=== PATIENT | male | born 1930 | race African-American/Black ===

== ENCOUNTER 2016-06-04 09:17 | Emergency (ER) | payer MEDICARE, OTHER ==
[2016-06-04 09:12] LABS: BASOPHIL# 0.1 X10e3 (0-0.3); BASOPHIL% 0.8 % (0-2.5); EOSINOPHIL# 0.1 X10e3 (0-0.7); EOSINOPHIL% 1.4 % (0.0-7.0); HEMATOCRIT 40.7 % (38.0-50.0); HEMOGLOBIN 13.3 gm/dL (13.0-16.0); LYMPHOCYTE# 1.8 X10e3 (1.0-3.5); LYMPHOCYTE% 25.8 % (17.0-45.0); MEAN CELL VOLUME 89.7 FL (83-96); MEAN CORPUSCULAR HEMOGLOBIN 29.2 PG (28-34); MEAN CORPUSCULAR HGB CONC 32.6 g/dL (30-36); MEAN PLATELET VOLUME 6.9 FL (6.5-11.5); MONOCYTE# 0.4 X10e3 (0-1.0); NEUTROPHIL# 4.5 X10e3 (1.5-7.1); PLATELET COUNT 260 X10e3 (140-420); RED BLOOD COUNT 4.54 X10e (3.90-5.60); RED CELL DISTRIBUTION WIDTH 12.2 % (11.0-15.5); WHITE BLOOD COUNT 6.8 X10e3 (4.0-10.5)
[2016-06-04 09:15] LABS: DIFF IND NO
[~2016-06-04 09:17] MED LIST: AMPICILLIN PO; ASPIRIN81 MG PO; B-12500 MCG PO; B12; BACTRIM DS TABL1 TAB PO; BAYER ASPIRIN325 M1 PO; DOC-Q-LACE100 MG PO; FINASTERIDE5 MG PO; FLOMAX0.4 M1 PO; HCTZ PO; HYDROCHLOROTHIA25 MG PO; INDERAL LA PO; INDERAL20 MG PO; LOVASTATIN20 M1 PO; LOVASTATIN20 M2 PO; LOVASTATIN20 MG PO; MACROBID 100 M100 MG PO; MAG-OX 400400 MG PO; PROPRANOLOL HCL20 MG PO; PROPRANOLOL PO; PROSCAR5 MG PO; RANITIDINE HCL150 M1 PO; TAPAZOLE10 MG PO; TYLENOL325 M1 PO; VASOTEC PO; VITAMIN B-12500 MCG PO; VITAMIN D5000 UNIT PO; VITAMIN D50000 UNIT PO; ZANTAC PO
[2016-06-04 09:34] LABS: BUN/CREATININE RATIO 13.12; CALCIUM SERUM 9.2 mg/dL (8.4-10.2); CREATININE SERUM 1.6 mg/dL (0.6-1.4); GLOM FILT RATE Estimated 44.6 mL/min (>60); POTASSIUM 3.1 mmol/L (3.5-5.1)
[2016-06-04 10:00] LABS: URINE SOURCE CLEAN CATCH
[2016-06-04 10:13] LABS: URINE APPEARANCE CLEAR; URINE BILIRUBIN NEG (NEG); URINE BLOOD NEG (NEG); URINE COLOR YELLOW; URINE GLUCOSE NEG (NEG); URINE KETONE NEG (NEG); URINE LEUKOCYTE ESTERASE TRACE (NEG); URINE NITRATE NEG (NEG); URINE PROTEIN 1+ (NEG); URINE SPECIFIC GRAVITY 1.023 (1.003-1.035); URINE UROBILINOGEN 0.2 MG/DL (NEG)
[2016-06-04 10:15] LABS: CULTURE INDICATED? YES; URBCS1 AUWI 0-2 /[HPF] (0-2); URINE BACTERIA AUWI NEG (NEGATIVE); URINE SQUAMOUS EPITHELIAL CELL NONE SEEN /[HPF]
== END 2016-06-04 11:10 | disposition home or self-care (01) ==
LOC: CED 09:17
PROVIDERS: Emergency Medicine
DX: R33.9 Retention of urine, unspecified (principal); K21.9 Gastro-esophageal reflux disease without esophagitis; I10 Essential (primary) hypertension; Z87.442 Personal history of urinary calculi; Z98.890 Other specified postprocedural states
CPT/HCPCS: 51702; 80048; 81003; 85025; 87086; 99284

== ENCOUNTER → 2016-06-17 | Outpatient (CLI) | payer MEDICARE, OTHER ==
--- NOTE | ~2016-06-17 | EKG ---
PATIENT: CRISPIN FAIR UNIT #: [id number] Ventricular Rate: 67 BPM Atrial Rate: 67 BPM P-R Interval: 154 ms QRS Duration: 76 ms Q-T Interval: 378 ms QTC Calculation(Bezet): 399 ms P [place]: 67 degrees Calculated R [place]: 17 degrees Calculated T [place]: 46 degrees Diagnosis Line: Normal sinus rhythm Diagnosis Line: Normal ECG Diagnosis Line: Diagnosis Line: Confirmed by JEROME FORDE MD ([id number]) on Diagnosis Line: 06/18/2016 4:34:30 PM INTERPRETING MD: EULA PEREZ
--- NOTE | ~2016-06-17 | CR63 ---
[facility] A Service of [facility] RADIOLOGY TEXT RESULTS PATIENT: CRISPIN FAIR LOCATION: [facility] : 30 UNIT #: [id number] AGE: [address]: Nato Rivera MD SEX: M ORDER DR: [id number] [facility] [address] [place], [place] [address] [id number] O MR#: [id number] [facility] #: [id number] NAME: CRISPIN FAIR : 1930 SEX: M STUDY DATE/TIME: 06/17/2016 12:16 UNIT: [facility] ROOM: STUDY DESCRIPTION: CR Chest 2 View Attending Physician: Nato Rivera M.D. Referring Physician: Nato Rivera M.D. Ordering Physician: Nato Rivera M.D. Primary Care Physician: Jacey Flores M.D. MEDICAL IMAGING REPORT This report is preliminary unless electronic signature is present EXAM Two-view chest HISTORY Shortness of air, weakness x2 weeks. History of hypertension, incontinence. COMPARISON Portable chest 02/25/2016 and 2-view chest 04/05/2008 and portable chest 02/25/2016. FINDINGS 2 views of the chest demonstrates moderate lung volume, satisfactory technique. No focal infiltrates or effusions. Heart, great vessels unremarkable. 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 This does produce mass effect on the trachea. This is unchanged from patient's portable chest of 02/25/2016 and was present on studies dating back to 2008 but appears increased in size from the 2008 study. 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 No calcifications are identified within the mass. Correlation with patient's clinical history and any outside studies is recommended. Review of patient's study on our network revealed no cross-sectional imaging. Osseous structures unremarkable. Minimal degenerative changes mid thoracic spine. IMPRESSION Large right paratracheal mass producing mass effect on the trachea but is unchanged from studies dating back to February 2016 and was present on a study dating back always to 2008, though it has shown interval increase in size. This would suggest a benign process possibly representing enlarged thyroid or potentially, benign adenopathy. Correlation with patient's [facility]. [facility] A Service of [facility] RADIOLOGY TEXT RESULTS PATIENT: CRISPIN FAIR LOCATION: [facility] : [birth year] UNIT #: [id number] AGE: [address]: Nato Rivera MD SEX: M ORDER DR: clinical history and any outside cross-sectional imaging is recommended. No acute abnormalities identified. Dictated by... Joel Silva M.D. THIS IS AN ELECTRONICALLY VERIFIED REPORT Joel Silva M.D. at 06/18/2016 8:24 AM HALEY/susu TD: 06/17/2016 21:44 JOB #: [id number] MEDICAL IMAGING REPORT Page 1 of 1 COPY
[2016-06-17 12:04] LABS: BASOPHIL# 0.1 X10e3 (0-0.3); EOSINOPHIL# 0.2 X10e3 (0-0.7); EOSINOPHIL% 2.4 % (0.0-7.0); HEMATOCRIT 39.7 % (38.0-50.0); HEMOGLOBIN 12.6 gm/dL (13.0-16.0); LYMPHOCYTE# 1.8 X10e3 (1.0-3.5); LYMPHOCYTE% 26.5 % (17.0-45.0); MEAN CELL VOLUME 90.1 FL (83-96); MEAN CORPUSCULAR HEMOGLOBIN 28.7 PG (28-34); MEAN CORPUSCULAR HGB CONC 31.8 g/dL (30-36); MEAN PLATELET VOLUME 7.3 FL (6.5-11.5); MONOCYTE# 0.4 X10e3 (0-1.0); MONOCYTE% 6.7 % (3.0-12.0); NEUTROPHIL# 4.2 X10e3 (1.5-7.1); NEUTROPHIL% 63.4 % (40-75); PLATELET COUNT 264 X10e3 (140-420); RED CELL DISTRIBUTION WIDTH 11.9 % (11.0-15.5); WHITE BLOOD COUNT 6.6 X10e3 (4.0-10.5)
[2016-06-17 12:06] LABS: DIFF IND NO
[2016-06-17 13:21] LABS: BUN/CREATININE RATIO 12.5; CALCIUM SERUM 9.2 mg/dL (8.4-10.2); CREATININE SERUM 1.6 mg/dL (0.6-1.4); GLOM FILT RATE Estimated 44.6 mL/min (>60); POTASSIUM 3.7 mmol/L (3.5-5.1)
== END | disposition home or self-care (01) ==
LOC: CLAB 11:05
PROVIDERS: Urology
DX: N40.1 Benign prostatic hyperplasia with lower urinary tract symptoms (principal); N39.41 Urge incontinence; J39.8 Other specified diseases of upper respiratory tract
CPT/HCPCS: 36415; 71020; 80048; 85025; 93005